=== PATIENT | female | born 1980 | race Caucasian/White ===

== ENCOUNTER 2017-02-20 19:00 | Emergency (ER) | payer OTHER ==
[2017-02-20 19:13] VITALS: BP 118/72; PULSE 78; RESP 16; O2SAT 95
--- NOTE | 2017-02-20 19:31 | EDPHY ---
H & P Stated Complaint: Pt reports IBS and bloody/mucus in stool HPI/ROS: CHIEF COMPLAINT: "Pain like 10", diarrhea HISTORY OF PRESENT ILLNESS: This patient is a 36 year old female with history of irritable bowel syndrome arriving today by taxi complaining of rectal "pain like 10" and associated diarrhea onset today. She reports she has had colonoscopies in the past, but not in the last few years. She describes her diarrhea as being mostly liquid with associated blood and mucous. She states she often has diarrhea with associated blood. She says today is particularly bad, and that she has associated "stinging pain". She denies associated abdominal pain, nausea, vomiting, dysuria, or other associated symptoms. She states baths, hemorrhoid preparations, and medicated pads have not relieved her pain in the past. She is insistent that she has only been able to control her pain with Tylenol with codeine. Her last menstrual period was 1-2 weeks ago, and she is not concerned for . She has history of bipolar disorder and states she is compliant with her medications. REVIEW OF SYSTEMS: A ten point review of systems was performed and is negative with the exception of the items mentioned in the HPI. - Personal History LMP (Females 10-55): 8-14 Days Ago Current Tetanus/Diphtheria Vaccine: Unsure Current Tetanus Diphtheria and Acellular Pertussis (TDAP): Unsure - Medical/Surgical History PMH: 1. Hypertension (metoprolol) 2. Obesity 3. Irritable Bowel Syndrome 4. Bipolar disorder (Xanax) Lives alone. Current smoker. Occ marijuana use. Denies alcohol use. PCP Dr. Zavala in [place]. Hx Asthma: No Hx Chronic Respiratory Disease: No Hx Diabetes: No Hx Cardiac Disease: No Hx Renal Disease: No Hx Cirrhosis: No Hx Alcoholism: No Hx HIV/AIDS: No Hx Splenectomy or Spleen Trauma: No Other PMH: IBS - Social History Smoking Status: Heavy smoker Additional Social History: Current smoker. Occasional marijuana use. Denies alcohol use. Lives at [facility]. States PCP is Dr. Zavala in [place]. - Physical Exam Exam: General Appearance: Alert. Vital signs reviewed. Eyes: Pupils equal and round, no conjunctival injection, no discharge. Anicteric. ENT, Mouth: Mucous membranes are moist, no oropharyngeal erythema or edema. Neck: No lymphadenopathy, supple. Respiratory: Lungs are clear to auscultation; no wheezes, rales, or rhonchi. Cardiovascular: Regular rate and rhythm; no murmur, rub, or gallop. Gastrointestinal: Abdomen is soft and nontender, no masses or organomegaly, bowel sounds normal. Rectal: Small anal fissure. No hemorrhoids. No masses. No internal masses or tenderness. No stool in vault. Skin: Warm and dry, no rashes on exposed skin, normal color. Back: Nontender to palpation over the thoracolumbar spine. No CVAT. Extremities: No lower extremity edema, no calf tenderness or swelling. Neurological: Alert and oriented. Moving all four extremities easily and equally. Psychiatric: Normal affect. Constitutional: Initial Vital Signs Heart Rate 78 02/20/17 19:11 Respiratory Rate 16 02/20/17 19:11 Blood Pressure 118/72 02/20/17 19:11 O2 Sat (%) 95 02/20/17 19:11 O2 Delivery Mode Room Air Allergies/Adverse Reactions: Sulfa (Sulfonamide Antibiotics) Allergy (Verified 02/20/17 19:13) Hives Home Medications: Medication Instructions Recorded Abilify 02/20/17 CLONAZEPAM 02/20/17 LaMICtal 02/20/17 Metoprolol Tartrate 02/20/17 Xanax 02/20/17 Medical Decision Making ED Course/Re-evaluation: This patient is a 36 year old female with history of psychiatric disorder and IBS presenting today with rectal pain. Physical exam reveals a small anal fissure. Exam is otherwise unremarkable. She is insistent that her pain is "a 10 " and that it can only be relieved with Tylenol with Codeine. I advised her that we generally do not give this medication for her type of pain. The patient is a resident at [facility], with history of substance abuse. She will not be able to receive a prescription for Tylenol #3. 19:55 When the patient was informed she would not be receiving an opiate prescription, she left against medical advice without waiting for discharge instructions. Differential Diagnosis: DDX includes but is not limited to hemorrhoids, rectal fissure, constipation, drug seeking behavior. Departure - Departure Disposition: Home, Routine, Self-Care Clinical Impression: Anal fissure Condition: Good Instructions: Anal Fissure (ED) Additional Instructions: 1. Follow up with your primary care provider for pain management and symptoms unresolved in the next week. 2. Use Tucks pads or other [id number] treatments for comfort. Referrals: ANNAMARIE WILLIAMSON [Other] - As per Instructions Stand Alone Forms: Narcotic Guidelines Report Scribed for: Elise Tong Report Scribed by: Annamarie Rasheed Date of Report: 02/20/17 Time of Report: 19:44 Physician Review and Approval Statement: 02/20/17 19:31 Portions of this note were transcribed by the medical support assistant. I, Dr. Elise Tong, personally performed the history, physical exam, and medical decision- making; and confirmed the accuracy of the information in the transcribed note.
== END 2017-02-20 19:57 | disposition home or self-care (01) ==
DX: K60.2 Anal fissure, unspecified (principal); I10 Essential (primary) hypertension; F17.200 Nicotine dependence, unspecified, uncomplicated

== ENCOUNTER → 2017-06-04 | Outpatient (CLI) | payer MEDICAID, OTHER | LOC: FIMAGING 09:52 | PROVIDERS: ATTEND Obstetrics & Gynecology | DX: R14.0 Abdominal distension (gaseous) (principal) ==